=== PATIENT | female | born 1985 | race Caucasian/White ===

== ENCOUNTER 2022-03-17 13:56 | Emergency (ER) | payer BC, OTHER ==
[2022-03-17 14:07] VITALS: BP 116/76; PULSE 88; BMI 42.3
[2022-03-17] MEDS ORDERED: ALBUTEROL SO4 HFA INHALER IH ONE (14:47)
[2022-03-17] MEDS ORDERED: ACETAMINOPHEN 500 MG TABLET (FP) PO ONE (14:52)
[2022-03-17] MEDS ORDERED: ACETAMINOPHEN 325 MG TABLET (FP) ONE ×2 (14:53→15:32)
[2022-03-17] MEDS: ALBUTEROL SO4 2.5/IPRATROPIUM 0.5 INH SOL 3 ML VIAL.NEB. NEB SCH ×4 (15:00→16:38)
== END 2022-03-17 18:43 | disposition home or self-care (01) ==
LOC: JER 13:56
PROC: 3E0F7GC Introduction of Other Therapeutic Substance into Respiratory Tract, Via Natural or Artificial Opening (ICD-10-PCS; principal; 2022-03-17)
DX: U07.1 COVID-19 (principal); J45.909 Unspecified asthma, uncomplicated
CPT/HCPCS: 0241U-QW; 71045-TC-FY; 84703; 93005; 93010; 99285-25